=== PATIENT | male | born 1960 | race Caucasian/White ===

== ENCOUNTER 2022-04-11 00:26 | Outpatient (CLI) | payer BC, SELFPAY ==
--- NOTE | 2022-04-11 07:00 | DI.MRI_ITS ---
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 TECHNIQUE: Multiplanar multisequence MRI of the brain and internal auditory canals was performed. CONTRAST MATERIAL: IV Contrast: 18 mL of Dotarem contrast administered. COMPARISON: No exams were available for comparison FINDINGS: VENTRICLES AND EXTRA AXIAL SPACES: Normal in size and morphology for the patient's age. HEMORRHAGE: None. CEREBRAL PARENCHYMA: No focus of restricted diffusion to suggest acute infarct. No space-occupying le kenneth identified. There are few foci of hyperintense signal seen in the white matter on the T2 and FLA IR images likely reflecting small vessel ischemic disease. MIDLINE SHIFT: None. BRAINSTEM/CEREBELLUM: Normal. CALVARIUM: Normal. ENHANCEMENT: No suspicious enhancement identified. VISUALIZED PARANASAL SINUSES/MASTOIDS: There is fluid seen in the left mastoid air cells. Small muco us retention cysts or polyps are seen in the maxillary sinus. LYTTON OF RUSSELL: Normal flow void. PITUITARY GLAND: Unremarkable. IAC/CP ANGLE: The internal auditory canals are within normal limits. The cerebellar pontine angles ar e unremarkable. No enhancing lesions are seen. Visualized portion of the facial nerves appear within normal limits. OTHER FINDINGS: None. IMPRESSION: 1. No intracranial mass or enhancing lesion. 2. A few hyperintense white matter is lesions on the FLAIR and T2 weighted images most consistent wit h small vessel ischemic disease. 3. Left mastoiditis. DATA REPOSITORY:
[2022-04-11 09:18] LABS: CREATININE 1.1 mg/dL (0.70-1.30); Estimated GFR 76.37 (mL/min/1.73m2)
[2022-04-11] MEDS: Normal Saline Flush 10 ML SYR IVP (09:29)
[2022-04-11] MEDS: Gadoterate meglumine 20 ML VIAL 18 ML IVP (09:30)
== END 2022-04-11 00:46 ==
LOC: DI 00:26
PROVIDERS: PCP Internal Medicine; Visit Provider Registered Nurse Maternal Newborn
DX: G93.89 Other specified disorders of brain (principal); H70.92 Unspecified mastoiditis, left ear
CPT/HCPCS: 70553; 82565